=== PATIENT | male | born 1945 | race Caucasian/White ===

== ENCOUNTER → 2022-10-21 | Outpatient (CLI) | payer OTHER ==
[~2022-10-21] MED LIST: CIPROFLOXACIN500 MG PO; MOTRIN800 MG PO
== END | disposition home or self-care (01) ==
LOC: MAMMO 10:00 → LAB 10:03 → MAMMO 10:03
PROVIDERS: ATTEND Internal Medicine
DX: N62 Hypertrophy of breast (principal); N63.20 Unspecified lump in the left breast, unspecified quadrant